=== PATIENT | male | born 1930 | race Caucasian/White ===

== ENCOUNTER 2016-07-19 13:35 | Observation (INO) | payer MEDICARE, BC ==
[~2016-07-19] VITALS: Ht 180.3 cm; Wt 78.7 kg
[2016-07-21] MEDS ORDERED: FEOSOL-DPS325 MG PO (17:51)
[2016-07-21] MEDS ORDERED: FLOMAX DPS0.4 MG PO ×2 (17:51)
[2016-07-21] MEDS ORDERED: ROCALTROL DP0.25 MCG PO (17:52)
[2016-07-21] MEDS ORDERED: MELATONIN3 MG PO (17:52)
[2016-07-21] MEDS ORDERED: SEROQUEL50 MG PO (17:52)
[2016-07-21] MEDS ORDERED: NEURONTIN DPS100 MG PO (17:52)
[2016-07-21] MEDS ORDERED: PROSCAR DPS5 MG PO (17:52)
[2016-07-21] MEDS ORDERED: SYNTHROID112 MCG PO (17:53)
[2016-07-21] MEDS ORDERED: VITAMIN D1000 UNI1 PO (17:53)
[2016-07-21] MEDS ORDERED: XARELTO15 MG PO (17:54)
[2016-07-21] MEDS ORDERED: KEFLEX-DPS250 MG PO (17:56)
[2016-07-21] MEDS ORDERED: ATARAX DPS50 MG PO (17:56)
[2016-07-21] MEDS ORDERED: TYLENOL DPS325 MG PO (17:56)
[2016-07-21] MEDS ORDERED: SURFAK DPS240 MG PO (17:56)
[2016-07-21] MEDS ORDERED: ATARAX-DPS25 MG PO (17:57)
--- NOTE | 2016-07-23 08:06 | NUR ---
Late Entry 07/19/16: Received call from ER stating that pt needs placement. Pt has been living at [facility] for the past 6 weeks. Went to [facility] from July 12-. Was discharged on July 19 and went back to [facility] and had an episoide of unresponsivness. Pt went to [facility] for behaviors, refusing meds, and being combative. SWS called [facility], state they will need to reassess pt before they are able to accept him back. If they are unable to accept back, son requests [facility] in [place]. Referral made, they will do an on-site assessment on Saturday. Pasrr screen is pending.
--- NOTE | 2016-07-25 13:22 | HP ---
ADMIT: 07/19/2016 RM/LOC: [facility] MR#: [id number] [address] [place] [address] History and Physical SEX: M AGE: 86 : 1930 DATE OF SERVICE: CHIEF COMPLAINT: Weakness, "Unresponsive episode." HISTORY OF PRESENT ILLNESS: Mr. Hill is a very pleasant 86-year-old man, who unfortunately has a past medical history significant for dementia. He actually was just moved over to [facility] and then from there, he had actually gone to the [facility] in order to get stabilized on his medications due to some agitation. He was being transferred back from the [facility] back to [facility]. Apparently, upon presentation to [facility], he was "unresponsive," did not note that his blood pressure was in the 170s to 180s systolic and therefore, transferred him over to the ER. Upon evaluation in the ER, signs of his blood pressures had stabilized, he was interactive and did not have any significant deficiencies. They went ahead and did kind of a basic lab evaluation, they really found no abnormalities. Therefore, they felt that he likely could be dismissed, however, due to the time and day, unfortunately, [facility] was unable to come and assess him. Therefore, he needed to be admitted overnight for further placement options. PAST MEDICAL HISTORY: Significant for: 1. Chronic kidney disease. 2. Coronary artery disease. 3. Atrial fibrillation, on chronic anticoagulation. 4. History of ischemic colitis. 5. History of a prior CVA. 6. Dementia. 7. Hypertension. 8. Hypothyroidism. 9. Overactive bladder. 10.Restless legs. 11.Recurrent urinary tract infection. 12.COPD. 13.Emphysema. 14.History of reflux. 15.History of GERD. ALLERGIES: HE HAS NO KNOWN MEDICAL ALLERGIES. MEDICATIONS: Currently from [facility] are: 1. Tylenol. 2. Vitamin D 2000 units daily. 3. Rocaltrol 0.5. 4. Colace 100 mg p.o. daily. 5. Ferrous sulfate 325 p.o. daily. 6. Finasteride 5 mg p.o. daily. 7. Gabapentin 300 mg p.o. t.i.d. 8. Hydroxyzine 50 mg p.o. at bedtime, 25 mg p.o. q.6 hours p.r.n. 9. Levothyroxine 112 mcg p.o. daily. ADMIT: 07/19/2016 RM/LOC: [facility] MR#: [id number] [address] [facility] [address] History and Physical SEX: M AGE: 86 : 1930 10.Melatonin 9 mg p.o. daily. 11.Seroquel 50 mg p.o. daily. 12.Xarelto 15 mg p.o. daily. 13.Tamsulosin 0.8 mg p.o. daily. SOCIAL HISTORY: He is . His resides at [place]. He does not smoke or use any significant alcohol. FAMILY HISTORY: Relatively noncontributory. REVIEW OF SYSTEMS: He is difficult to obtain, but was otherwise negative. PHYSICAL EXAMINATION: GENERAL: He is alert, he is not really oriented, but he is interactive. HEENT: Pupils are equal, round, reactive. He has some ecchymoses across the back and forth of his hands and he has a small cut across the back of his right hand. HEART: Normal rate with regular rhythm. LUNGS: Clear to auscultation. ABDOMEN: Soft. Bowel sounds are present. EXTREMITIES: No evidence of edema. SKIN: Warm and soft. NEUROLOGIC: Move his upper and lower extremities. ASSESSMENT AND PLAN: 1. Weakness at this time. We will go and have PT come and see him. 2. Unresponsive-type episode, seems to be doing fine now. 3. Dementia, continue his medications. 4. History of recurrent urinary tract infections, they went ahead and got a UA, which is negative. 5. Chronic renal insufficiency, actually it is kind of at his baseline, but we will go ahead and encourage p.o. fluids. His gabapentin is dosed a little high for someone with chronic renal insufficiency. Otherwise, we will plan to have Social Work follow along for placement. Zoey Murdock MD/ tiana JOB #: [id number] CC: Zoey Murdock MD, Attending Physician Zoey Murdock MD, Family Physician
--- NOTE | 2016-08-25 08:25 | ER ---
ADMIT: 07/19/2016 RM/LOC: [facility] MR#: [id number] [id number] [address] [place], [place] [address] Emergency Room Report SEX: M AGE: 86 : 1930 DATE: 07/19/2016 ADDENDUM: This patient comes to the ER because they are concerned at the half-way he had a time when he seemed unresponsive, that lasted 15 minutes. He has a history of having dementia. There was no injury or fall. He was previously hospitalized a week ago for urinary tract infection. On physical exam, this patient is alert, but confused. His lungs are clear. His abdomen is soft. He does not seem tender in any of his extremities. CBC, BMP, and urinalysis were normal. There was some concern that the half-way felt he was inappropriate to be at the half-way he was currently at, that he needed a higher level of care. We did call our social work, they tried to find a place for him, were unable to. I did speak with Dr. Murdock, who is on- call, and the patient will be admitted by her for placement into a higher level of care. DIAGNOSES: 1. Episode of unresponsiveness. 2. Elevated creatinine. MARISOL Archer / Toro Arita MD / modl JOB #: [id number] CC: Zoey Murdock MD, Attending Physician Zoey Murdock MD, Family Physician
[2016-10-26] MEDS ORDERED: DUONEB DPS3 ML IH (14:59)
[2016-10-26] MEDS ORDERED: ATARAX DPS50 MG PO ×2 (15:04→15:05)
[2016-10-26] MEDS ORDERED: MUCINEX600 MG PO (15:05)
[2016-10-26] MEDS ORDERED: PRESERVISION A1 EAC2 PO (15:05)
[2016-10-26] MEDS ORDERED: NEURONTIN DPS100 MG PO (15:05)
[2016-10-26] MEDS ORDERED: VITAMIN B-12500 MCG PO (15:11)
[2016-10-26] MEDS ORDERED: DESYREL-DPS50 MG PO (15:12)
[2016-10-26] MEDS ORDERED: LEVAQUIN DPS750 MG PO (15:13)
== END 2016-07-20 14:10 | disposition home or self-care (01) ==
LOC: ER 13:35 → 4PCU 16:00
PROVIDERS: ADMIT Internal Medicine
DX: F03.90 Unspecified dementia, unspecified severity, without behavioral disturbance, psychotic disturbance, mood disturbance, and anxiety (principal); R41.0 Disorientation, unspecified; R53.1 Weakness; I13.10 Hypertensive heart and chronic kidney disease without heart failure, with stage 1 through stage 4 chronic kidney disease, or unspecified chronic kidney disease; N18.9 Chronic kidney disease, unspecified; I25.10 Atherosclerotic heart disease of native coronary artery without angina pectoris; E03.9 Hypothyroidism, unspecified; J44.9 Chronic obstructive pulmonary disease, unspecified; N39.0 Urinary tract infection, site not specified; G25.81 Restless legs syndrome; N32.81 Overactive bladder; Z79.899 Other long term (current) drug therapy